=== PATIENT | male | born 1955 | race Caucasian/White ===

== ENCOUNTER 2021-01-22 11:26 | Emergency (ER) | payer OTHER, MEDICARE ==
[~2021-01-22] VITALS: Ht 182.9 cm; Wt 98.0 kg
[2021-01-22 12:12] LABS: HEMATOCRIT 51.8 % (39.0-50.0); HEMOGLOBIN 17.4 g/dl (14.0-18.0); IMMATURE GRANULOCYTES 0.4 % (0.0-5.0); MEAN CELL VOLUME 92.2 fL CALC (80.0-100.0); MEAN CORPUSCULAR HGB CONC 33.6 g/dL CAL (32.0-36.0); NEUT# 7.9 thou/uL (1.82-7.42); RED BLOOD COUNT 5.62 mill/uL (4.70-6.10); RED CELL DISTRI WIDTH 12.9 % (11.5-15.5)
[2021-01-22 12:39] LABS: ALBUMIN 4.4 g/dL (3.2-5.0); ALKALINE PHOSPHATASE 96 u/l (38-126); ANION GAP 16 (6-22 (CALC)); BILIRUBIN, TOTAL 0.6 mg/dL (0.0-1.4); BUN 15 mg/dL (8-23); BUN/CREATININE RATIO 13 (12-20 (CALC)); CARBON DIOXIDE 24 mmol/l (22-30); CHLORIDE 102 mmol/l (95-108); CREATININE 1.2 mg/dL (0.7-1.3); GFR > 60 ML/MIN (>=60 (CALC)); GFR FOR AFR.AMER. > 60 ML/MIN (>=60 (CALC)); POTASSIUM 4.7 mmol/l (3.5-5.1); SGOT/AST 32 u/l (19-48); SODIUM 137 mmol/l (137-146); TOTAL PROTEIN 7.9 g/dL (6.3-8.2)
[2021-01-22 12:51] LABS: MYOGLOBIN 228 ng/mL (0 - 121)
[2021-01-22 13:32] LABS: ACT PARTIAL THROMBO TIME 26.2 SECONDS (20.0-32.5); PROTHROMBIN TIME 9.9 SECONDS (9.0-12.5)
[2021-01-22 14:31] VITALS: BP 136/82
== END 2021-01-22 14:27 | disposition short-term general hospital (02) | DRG 311 ==
LOC: ED 11:26
PROVIDERS: Emergency Medicine
DX: I20.0 Unstable angina (principal); R79.89 Other specified abnormal findings of blood chemistry; I10 Essential (primary) hypertension; E11.9 Type 2 diabetes mellitus without complications; M79.7 Fibromyalgia; F17.210 Nicotine dependence, cigarettes, uncomplicated

== ENCOUNTER 2022-05-19 14:12 | Observation (INO) | payer OTHER, MEDICARE ==
[~2022-05-19] VITALS: Ht 182.9 cm; Wt 95.0 kg
--- NOTE | 2022-05-19 14:14 | NUR ---
PT AMB TO ROOM WITH STEADY GAIT; DR DAVID AT BEDSIDE
[2022-05-19 14:32] LABS: HEMATOCRIT 50.2 % (39.0-50.0); IMMATURE GRANULOCYTES 0.2 % (0.0-5.0); MEAN CELL VOLUME 94.9 fL CALC (80.0-100.0); MEAN CORPUSCULAR HGB 32.1 pG CALC (26.0-32.0); MEAN CORPUSCULAR HGB CONC 33.9 g/dL CAL (32.0-36.0); NEUT# 12.8 thou/uL (1.82-7.42); RED BLOOD COUNT 5.29 mill/uL (4.70-6.10)
[2022-05-19 14:45] LABS: ALBUMIN 4.6 g/dL (3.2-5.0); ALKALINE PHOSPHATASE 110 u/l (38-126); ANION GAP 16 (6-22 (CALC)); BILIRUBIN, TOTAL 0.6 mg/dL (0.0-1.4); BUN 14 mg/dL (8-23); BUN/CREATININE RATIO 11 (12-20 (CALC)); CARBON DIOXIDE 23 mmol/l (22-30); CHLORIDE 101 mmol/l (95-108); CREATININE 1.3 mg/dL (0.7-1.3); GFR FOR AFR.AMER. > 60 ML/MIN (>=60 (CALC)); GFR OTHER RACES 55 ML/MIN (>=60 (CALC)); POTASSIUM 3.9 mmol/l (3.5-5.1); SGOT/AST 26 u/l (19-48); SODIUM 136 mmol/l (137-146); TOTAL PROTEIN 8.6 g/dL (6.3-8.2)
[2022-05-19 14:57] LABS: URINE BILIRUBIN - DIPSTICK NEGATIVE (NEGATIVE); URINE BLOOD DIPSTICK NEGATIVE (NEGATIVE); URINE COLOR YELLOW; URINE GLUCOSE - DIPSTICK >=1000 mg/dL (NEGATIVE); URINE KETONE NEGATIVE (NEGATIVE); URINE LEUK ESTERASE NEGATIVE (NEGATIVE); URINE PH 5.5 (4.5-8.0); URINE PROTEIN - DIPSTICK NEGATIVE (NEG-TRACE); URINE UROBILINOGEN - DIPSTICK 0.2 E.U./dL (0.2)
[2022-05-19 15:01] LABS: URINE NITRITE - DIPSTICK NEGATIVE (Negative)
--- NOTE | 2022-05-19 19:10 | NUR ---
PT ARRIVED TO [facility] @1910 VIA WHEELCHAIR, ACCOMPANIED BY DAMIAN MARTINEZ. PT ORIENTED TO ROOM AND USE OF CALL LIGHT. SAFETY PRECAUTIONS IN PLACE WITH CALL LIGHT IN REACH.
--- NOTE | 2022-05-19 19:10 | NUR ---
PATIENT ARRIVED VIA STRETCHER ON FLOOR ACCOMPANIED BY MAGED SALGADO.
--- NOTE | 2022-05-19 19:10 | NUR ---
PATIENT ASSESMENT COMPLETED AT THIS TIME. PATIENT ALERT AND ORIENTED X3. NORMAL HEART SOUNDS, CLEAR LUNG SOUNDS BILATERALLY. TELE IN PLACE. #18 IN RFA FLUSHED AND PATENT. ORIENTED TO CALL LIGHT SYSTEM, CALL LIGHT AND BEDSIDE TABLE WITHIN REACH.
--- NOTE | 2022-05-19 19:17 | NUR ---
Pt was taken upstairs via wheelchair on tele. Report given to floor nurse.
--- NOTE | 2022-05-19 19:30 | NUR ---
REPORT RECEIVED FROM Brenton BUCK LPN.
[2022-05-19 20:44] VITALS: BP 132/94
--- NOTE | 2022-05-19 21:40 | NUR ---
MEDICATIONS ADMINISTERED PER EMAR. SEE EMAR.
--- NOTE | 2022-05-19 23:48 | NUR ---
ANTIBIOTIC HUNG AT THIS TIME. PATIENT DENIES ANY CURRENT NEEDS. CALL LIGHT AND BEDSIDE TABLE WIHTIN REACH.
[2022-05-19 23:53] VITALS: BP 115/68
[2022-05-20] VITALS (11 sets, daily range): BP systolic 115–150; BP diastolic 68–89
--- NOTE | 2022-05-20 04:48 | NUR ---
PATIENT RESTING QUIETLY, DENIES ANY NEEDS AT THIS TIME. CALL LIGHT AND BEDSIDE TABLE WITHIN REACH.
[2022-05-20 05:25] LABS: HEMOGLOBIN 15.6 g/dl (14.0-18.0); MEAN CELL VOLUME 95.8 fL CALC (80.0-100.0); MEAN CORPUSCULAR HGB 32.5 pG CALC (26.0-32.0); MEAN CORPUSCULAR HGB CONC 33.9 g/dL CAL (32.0-36.0); RED BLOOD COUNT 4.8 mill/uL (4.70-6.10)
[2022-05-20 05:42] LABS: ANION GAP 11 (6-22 (CALC)); BUN 19 mg/dL (8-23); BUN/CREATININE RATIO 17 (12-20 (CALC)); CARBON DIOXIDE 25 mmol/l (22-30); CHLORIDE 105 mmol/l (95-108); CREATININE 1.1 mg/dL (0.7-1.3); GFR FOR AFR.AMER. > 60 ML/MIN (>=60 (CALC)); GFR OTHER RACES > 60 ML/MIN (>=60 (CALC)); MAGNESIUM 1.6 mg/dL (1.6-2.3); POTASSIUM 3.6 mmol/l (3.5-5.1); SODIUM 137 mmol/l (137-146)
--- NOTE | 2022-05-20 05:45 | NUR ---
ANTIBIOTIC HUNG AT THIS TIME, PATIENT DENIES ANY NEEDS AT THIS TIME. CALL LIGHT AND BEDSIDE TABLE WITHIN REACH.
--- NOTE | 2022-05-20 06:40 | NUR ---
RECEIVED REPORT FROM DAMIAN CHAVARRIA.
--- NOTE | 2022-05-20 08:10 | NUR ---
PT IN BED;A&O X3. TELEMETRY IN PLACE WITH LAST READING SR-80. EVEN AND UNLABORED RESPIRATIONS; CLEAR LUNG SOUNDS UPON AUSCULTATION. ACTIVE BOWEL SOUNDS X4 QUADRANTS. IV SITE HEALTHY AND PATENT. NO DISTRESS NOTED. PT DENIES PAIN AT THE MOMENT. PT INFORMED HE WILL BE GOING TO RADIOLOGY FOR CHEST XRAY; PT AGREES AND SHOWED UNDERSTANDING. SAFETY PRECAUTIONS IN PLACE WITH CALL LIGHT IN REACH.
[2022-05-20] MEDS ORDERED: MELATONIN3 M1 PO (09:57)
[2022-05-20] MEDS ORDERED: METFORMIN500 M2 PO (09:58)
[2022-05-20] MEDS ORDERED: BACLOFEN10 MG PO (09:58)
[2022-05-20] MEDS ORDERED: JARDIANCE25 MG PO (09:59)
[2022-05-20] MEDS ORDERED: DULOXETINE HCL30 MG PO (09:59)
[2022-05-20] MEDS ORDERED: LASIX 40 MG TAB40 MG PO (10:00)
[2022-05-20] MEDS ORDERED: WELLBUTRIN150 M1 PO (10:00)
[2022-05-20] MEDS ORDERED: GABAPENTIN300 M2 PO (10:01)
[2022-05-20] MEDS ORDERED: LANTUS100 UNIT SD (10:02)
[2022-05-20] MEDS ORDERED: LEVOTHYROXIN175 MC1 PO (10:02)
[2022-05-20] MEDS ORDERED: OMEPRAZOLE20 MG PO (10:03)
[2022-05-20] MEDS ORDERED: MULTIVITAMI9 PO (10:03)
[2022-05-20] MEDS ORDERED: OZEMPIC2 MG/1.5 M SC (10:05)
[2022-05-20] MEDS ORDERED: SILDENAFIL100 MG PO (10:07)
[2022-05-20] MEDS ORDERED: SIMVASTATIN40 MG PO (10:08)
[2022-05-20] MEDS ORDERED: STELARA IJ (10:09)
--- NOTE | 2022-05-20 12:10 | NUR ---
PT SITTING ON HIGH KELLY'S, HAVING LUNCH. NO DISTRESS OR PAIN NOTED. NO NEEDS AT THE TIME. SAFETY PRECAUTIONS IN PLACE WITH CALL LIGHT IN REACH.
--- NOTE | 2022-05-20 16:00 | NUR ---
PT IN BED WATCHING TV. NO DISTRESS NOTED. PT DENIES PAIN AT THE MOMENT. NO NEEDS AT THE TIME. SAFETY PRECAUTIONS IN PLACE WITH CALL LIGHT IN REACH.
--- NOTE | 2022-05-20 16:51 | NUR ---
Patient was asked if they had a bowl movement. Patient stated no.
--- NOTE | 2022-05-20 19:30 | NUR ---
REPORT RECEIVED FROM Brenton BUCK RN
--- NOTE | 2022-05-20 22:40 | NUR ---
ASSEMENT COMPLETED AT THIS TIME. PATIENT ALERT AND ORIENTED. NORMAL HEART SOUNDS, CLEAR LUNG SOUNDS THROUGHOUT. TELE IN PLACE READING SR 78. PATIENT DENIES ANY PAIN OR ANY CURRENT NEEDS AT THIS TIME. #20 IN LAC INFUSING NS AT 100 PER EMAR. CALL LIGHT AND BEDSIDE TABLE WITHIN REACH.
--- NOTE | 2022-05-20 23:00 | NUR ---
ANTIBIOTIC HUNG AT THIS TIME. PATIENT DENIES ANY FURTHER NEEDS, CALL LIGHT AND BEDSIDE TABLE WITHIN REACH.
[2022-05-21] VITALS (7 sets, daily range): BP systolic 140–160; BP diastolic 85–93
--- NOTE | 2022-05-21 05:00 | NUR ---
PATIENT RESTING COMFORTABLY, DENIES AY CURRENT NEEDS AT THIS TIME 150 ML OF CLEAR YELLOW URINE EMPTIED FROM URINAL AT THIS TIME. ANTIBIOTIC HUNG, CALL LIGHT AND BEDSIDE TABLE WITHIN REACH.
[2022-05-21 05:36] LABS: HEMATOCRIT 43.8 % (39.0-50.0); HEMOGLOBIN 14.8 g/dl (14.0-18.0); IMMATURE GRANULOCYTES 0.2 % (0.0-5.0); MEAN CELL VOLUME 96.3 fL CALC (80.0-100.0); MEAN CORPUSCULAR HGB 32.5 pG CALC (26.0-32.0); MEAN CORPUSCULAR HGB CONC 33.8 g/dL CAL (32.0-36.0); NEUT# 5.71 thou/uL (1.82-7.42); RED BLOOD COUNT 4.55 mill/uL (4.70-6.10)
[2022-05-21 05:58] LABS: ALKALINE PHOSPHATASE 75 u/l (38-126); ANION GAP 9 (6-22 (CALC)); BILIRUBIN, TOTAL 0.4 mg/dL (0.0-1.4); BUN 18 mg/dL (8-23); BUN/CREATININE RATIO 18 (12-20 (CALC)); CARBON DIOXIDE 22 mmol/l (22-30); CHLORIDE 110 mmol/l (95-108); GFR FOR AFR.AMER. > 60 ML/MIN (>=60 (CALC)); GFR OTHER RACES > 60 ML/MIN (>=60 (CALC)); MAGNESIUM 1.8 mg/dL (1.6-2.3); POTASSIUM 3.7 mmol/l (3.5-5.1); SGOT/AST 21 u/l (19-48); SODIUM 138 mmol/l (137-146)
[2022-05-21 06:09] LABS: ALBUMIN 3.3 g/dL (3.2-5.0); TOTAL PROTEIN 6.2 g/dL (6.3-8.2)
--- NOTE | 2022-05-21 07:00 | NUR ---
PT REPORT RECVIEVED FROM RUBY ON [employer]ILS ENGINEER
--- NOTE | 2022-05-21 08:00 | NUR ---
PT RESTING IN FOWLERS POSITION. A/OX3 ASSESSMENT AND VS COMPLETED. HEART RHYTHM NORMAL ON TELE . RESPIRATIONS EVEN UNLABORED. BOWEL SOUNDS ACTIVE.IV SITE NOTED TO LEFT LOWER ARM. INFUSING WITH NS. PT DENIES ADDITIONAL NEEDSA T THE TIME ALL SAFETY PRECAUTIONS IN PLACE WITH CALL LIGHT IN REACH.
--- NOTE | 2022-05-21 12:06 | NUR ---
PT RESTING IN FOWLERS POSITION. PT REQUESTED DRINK. DRINK PROVIDED. PT IV SITE PATENT FLUSHED. NOW S.L. PT DENIES ADDITIONAL NEEDS ALL SAFETY PRECAUTIONS IN PLACE.
[2022-05-21] MEDS ORDERED: MECLIZINE25 MG PO (12:55)
--- NOTE | 2022-05-21 14:17 | NUR ---
Discharge instructions given. Patient verbalizes understanding of same. Discharged in stable condition via Wheelchair to Home with staff. All belongings sent with pt. PT TELE OFF AND IV OUT .
== END 2022-05-21 14:17 | disposition home or self-care (01) | DRG 641 ==
LOC: ED 14:12 → ED-I 16:09 → ED 16:22 → MS2 16:23
PROVIDERS: Family Medicine; Nurse Practitioner; ADMIT Internal Medicine; ATTEND Internal Medicine
DX: E86.0 Dehydration (principal); D72.829 Elevated white blood cell count, unspecified; H81.10 Benign paroxysmal vertigo, unspecified ear; I10 Essential (primary) hypertension; E11.9 Type 2 diabetes mellitus without complications; I25.2 Old myocardial infarction; M79.7 Fibromyalgia; F17.200 Nicotine dependence, unspecified, uncomplicated; Z95.1 Presence of aortocoronary bypass graft; Z79.84 Long term (current) use of oral hypoglycemic drugs; Z79.4 Long term (current) use of insulin; Z79.899 Other long term (current) drug therapy; Z20.822 Contact with and (suspected) exposure to COVID-19
CPT/HCPCS: J1650